=== PATIENT | male | born 1955 | race Caucasian/White ===

== ENCOUNTER → 2024-07-11 13:56 | Outpatient (REF) | payer MEDICARE, SELFPAY | LOC: HWRAD 13:56 | PROVIDERS: ATTENDING PHYSICIAN Internal Medicine Cardiovascular Disease; FAMILY PHYSICIAN Student in an Organized Health Care Education/Training Program | DX: I10 Essential (primary) hypertension (principal); R51.9 Headache, unspecified | CPT/HCPCS: 70450 ==